=== PATIENT | female | born 1955 | race Caucasian/White ===

== ENCOUNTER 2023-03-30 15:11 | Observation (INO) | payer MEDICARE ==
[~2023-03-30 15:11] MED LIST: Iopamidol 370 76% 100 ML VIAL ONE
[2023-03-30] MEDS ORDERED: Acetaminophen 500 MG TAB ONE (15:30)
[2023-03-30] MEDS ORDERED: Ondansetron PF 4 MG/2 ML Vial ONE (15:30)
[2023-03-30 15:43] LABS: #Basophils 0.1 thou/uL (0.0-0.2); #Eosinphils 0.2 thou/uL (0.0-0.7); #Lymphocytes 1.4 thou/uL (1.20-3.40); #Monocytes 0.9 thou/uL (0.11-0.59); #Neutrophils 10.1 thou/uL (1.40-6.50); %Basophils 0.8 % (0.0-1.0); %Eosinophils 1.4 % (0.0-10.0); %Neutrophils 79.8 % (42.0-75.0); Hemoglobin 10.1 g/dL (12.0-16.0); Mean Corpuscular HGB CONC 30.5 g/dL (32.0-36.0); Mean Corpuscular Hemoglobin 23.1 pg (27.0-31.0); Mean Corpuscular Volume 75.8 fl (78.0-98.0); Platelet Count 223 10x3/uL (130-400); RBC Distribution Width 17.8 % (11.5-14.5); Red Blood Cell (RBC) Count 4.36 mill/uL (4.20-5.40); White Blood Cell (WBC) Count 12.7 10x3/uL (4.8-10.8)
[2023-03-30 15:57] LABS: MDiff Complete? YES
[2023-03-30 15:59] LABS: ALT (SGPT) 13 U/L (8-55); AST (SGOT) 18 U/L (5-34); Albumin 3.9 g/dL (3.4-4.8); Alkaline Phosphatase 49 U/L (40-110); Anion Gap 17 mmol/L (10-20); BUN (Urea Nitrogen) 8 mg/dL (9.8-20.1); Bilirubin, Total 0.9 mg/dL (0.2-1.2); Calc. Creatinine Clearance 0 mL/min (70-130); Carbon Dioxide 21 mmol/L (23-31); Chloride 103 mmol/L (98-107); Estimated GFR 84; Globulin 2.9 g/dL (2.4-3.5); Glucose 166 mg/dL (80-115); Lipase 45 U/L (8-78); Potassium 4.1 mmol/L (3.5-5.1); Protein, Total 6.8 g/dL (5.8-8.1); Sodium 137 mmol/L (136-145)
[2023-03-30 16:19] LABS: Bilirubin Negative (Negative); Blood, Urine Trace (Negative); Clarity Cloudy (Clear); Glucose, Urine (Dipstick) Negative (Negative); Ketone, Urine Negative (Negative); Leukocyte Small (Negative); Nitrite Positive (Negative); Protein, Urine (Dipstick) 30 mg/dL (Neg-Trace); Urobilinogen 0.2 mg/dL (Less than 2)
[2023-03-30 16:21] LABS: Specific Gravity, Urine 1.017 (1.002-1.036)
[2023-03-30 16:25] LABS: Bacteria/HPF 3+ HPF (None Seen); CAUTI Indications for Culture Dysuria,urgency,freq; RBC/HPF 0-3 HPF (0-3); Squamous Epithelial 0-3 HPF (0-3); WBC/HPF Greater Than 50 HPF (0-3)
[2023-03-30 16:26] LABS: Urine Culture Reflex Yes Yes
[2023-03-30] MEDS ORDERED: Sodium Chloride 0.9% 100 ML ONE (16:34)
[2023-03-30] MEDS ORDERED: cefTRIAXone (ROCEPHIN) 2 GM VIAL ONE (16:34)
[2023-03-30 16:50] LABS: SARS-CoV-2 NAA Rapid Test Not Detected (NotDetected)
[2023-03-30] MEDS ORDERED: Vancomycin 1 GM VIAL ONE (17:21)
[2023-03-30 17:39] VITALS: BMI 34.0
[2023-03-30] MEDS ORDERED: Ondansetron PF 4 MG/2 ML Vial IVP PRN (17:45)
[2023-03-30] MEDS ORDERED: Ondansetron ODT 4 MG TAB SL PRN (17:45)
[2023-03-30] MEDS ORDERED: Acetaminophen 325 MG TAB PO PRN (17:45)
[2023-03-30] MEDS ORDERED: Sodium Chloride 0.9% 1,000 ML IV SCH (17:45)
[2023-03-30] MEDS ORDERED: Fluticasone Propionate Nasal Spray 16 gm Bottle NASAL PRN (18:17)
[2023-03-30] MEDS: Sodium Chloride 0.9% 1,000 ML IV SCH (19:55)
[2023-03-30] MEDS: Acetaminophen 325 MG TAB PO PRN (20:06)
[2023-03-30] MEDS: metFORMIN 500 MG TAB PO SCH (20:07)
[2023-03-30] MEDS ORDERED: Atorvastatin Calcium 10 MG TAB PO SCH (21:00)
[2023-03-30] MEDS ORDERED: Montelukast Sodium 10 mg Tablet PO SCH (21:00)
[2023-03-30] MEDS ORDERED: Loratadine 10 MG TAB PO SCH (21:00)
[2023-03-31] MEDS: Sodium Chloride 0.9% 1,000 ML IV SCH ×2 (03:57→09:17)
[2023-03-31 05:03] LABS: Hematocrit 28.6 % (36.0-47.0); Mean Corpuscular HGB CONC 31.6 g/dL (32.0-36.0); Mean Corpuscular Hemoglobin 23.7 pg (27.0-31.0); Mean Platelet Volume 7.1 fL (7.4-10.4); Platelet Count 184 10x3/uL (130-400); RBC Distribution Width 17.7 % (11.5-14.5); Red Blood Cell (RBC) Count 3.81 mill/uL (4.20-5.40); White Blood Cell (WBC) Count 10.4 10x3/uL (4.8-10.8)
[2023-03-31 05:12] LABS: Anion Gap 13 mmol/L (10-20); BUN (Urea Nitrogen) 6 mg/dL (9.8-20.1); Calc. Creatinine Clearance 107 mL/min (70-130); Carbon Dioxide 20 mmol/L (23-31); Chloride 110 mmol/L (98-107); Estimated GFR 94; Glucose 132 mg/dL (80-115); Potassium 3.6 mmol/L (3.5-5.1); Sodium 139 mmol/L (136-145)
[2023-03-31 05:28] LABS: Band 5 % (5-11); Eosinophils 4 % (0-10); Lymphocytes 15 % (21-51); MDiff Complete? YES; Monocytes 4 % (0-10); Neutrophil 72 % (42-75); Platelet Adequacy Comment Appears Adequate
[2023-03-31] MEDS: Acetaminophen 325 MG TAB PO PRN (08:38)
[2023-03-31] MEDS: metFORMIN 500 MG TAB PO SCH (08:41)
[2023-03-31 08:51] VITALS: BP 145/81
[2023-03-31] MEDS ORDERED: Folic Acid 1 MG TAB PO SCH (09:00)
[2023-03-31] MEDS ORDERED: Potassium Citrate [Potassium] 99 MG Capsule PO SCH (09:00)
[2023-03-31] MEDS ORDERED: Multivit, Therapeutic 1 TAB PO SCH (09:00)
[2023-03-31] MEDS ORDERED: Cyanocobalamin (Vitamin B-12) 1,000 MCG TAB PO SCH (09:00)
[2023-03-31] MEDS ORDERED: Ascorbic Acid 500 mg Chewable Tablet PO SCH (09:00)
[2023-03-31] MEDS ORDERED: glipiZIDE XL 2.5 mg ER.TAB PO SCH (09:00)
[2023-03-31] MEDS ORDERED: Cholecalciferol (Vitamin D3) 400 UNITS TAB PO SCH (09:00)
[2023-03-31] MEDS ORDERED: Hydroxychloroquine Sulfate 200 MG TAB PO SCH (09:00)
[2023-03-31] MEDS ORDERED: Fish Oil 1,000 MG CAP PO SCH (09:00)
[2023-03-31] MEDS ORDERED: Aspirin 81 mg Enteric Coated Tablet PO SCH (09:00)
[2023-03-31] MEDS ORDERED: Sulfameth/Trimethoprim DS 800-160mg TAB PO SCH ×2 (09:30→21:00)
[2023-03-31 09:52] VITALS: TEMP 99.3
== END 2023-03-31 13:20 | disposition home or self-care (01) ==
LOC: BURERS 15:11 → BURMED 17:05
PROVIDERS: ADMIT Family Medicine; ATTEND Family Medicine
DX: N12 Tubulo-interstitial nephritis, not specified as acute or chronic (principal); E86.0 Dehydration; E11.22 Type 2 diabetes mellitus with diabetic chronic kidney disease; I12.9 Hypertensive chronic kidney disease with stage 1 through stage 4 chronic kidney disease, or unspecified chronic kidney disease; N18.9 Chronic kidney disease, unspecified; D63.1 Anemia in chronic kidney disease; E78.5 Hyperlipidemia, unspecified; Z87.891 Personal history of nicotine dependence; Z79.84 Long term (current) use of oral hypoglycemic drugs; Z79.82 Long term (current) use of aspirin; Z79.899 Other long term (current) drug therapy
CPT/HCPCS: 0240U; 71045; 74177; 80048; 80053; 81001; 83605; 83690; 85025 ×2; 87040; 87077; 87086; 87186; 96361; 96365; 96375; 99284; G0378 ×2; 36415; J0696; J2405; J3370; J3490; J7050; Q9967

== ENCOUNTER 2023-04-03 14:34 | Emergency (ER) | payer MEDICARE ==
[2023-04-03] MEDS ORDERED: traMADol HCl 50 MG TAB ONE (16:11)
== END 2023-04-03 17:01 | disposition home or self-care (01) ==
LOC: BURERS 14:34
DX: M25.551 Pain in right hip (principal); E11.9 Type 2 diabetes mellitus without complications; I10 Essential (primary) hypertension; E78.00 Pure hypercholesterolemia, unspecified; Z87.891 Personal history of nicotine dependence; Z79.899 Other long term (current) drug therapy; Z79.82 Long term (current) use of aspirin; Z79.84 Long term (current) use of oral hypoglycemic drugs

== ENCOUNTER 2024-03-18 05:16 | Emergency (ER) | payer MEDICARE ==
[2024-03-18] MEDS ORDERED: Acetaminophen 500 MG TAB ONE (05:48)
== END 2024-03-18 05:59 | disposition home or self-care (01) ==
LOC: BURERS 05:16
DX: S43.401A Unspecified sprain of right shoulder joint, initial encounter (principal); E11.9 Type 2 diabetes mellitus without complications; I10 Essential (primary) hypertension; E78.00 Pure hypercholesterolemia, unspecified; W19.XXXA Unspecified fall, initial encounter; Z79.82 Long term (current) use of aspirin; Z79.899 Other long term (current) drug therapy; Z87.891 Personal history of nicotine dependence
CPT/HCPCS: 99283